=== PATIENT | female | born 1960 | race Hispanic/Latino ===

== ENCOUNTER 2017-03-01 10:12 | Emergency (ER) | payer OTHER ==
[~2017-03-01] VITALS: Ht 160 cm; Wt 75.0 kg
[2017-03-01] MEDS ORDERED: PERCOCET 5/31 TABLET PO (14:02)
[2017-03-01 15:09] VITALS: BP 151/80
== END 2017-03-01 15:10 | disposition home or self-care (01) ==
LOC: EME 10:12
DX: S92.332A Displaced fracture of third metatarsal bone, left foot, initial encounter for closed fracture (principal); S92.342A Displaced fracture of fourth metatarsal bone, left foot, initial encounter for closed fracture; W19.XXXA Unspecified fall, initial encounter; I10 Essential (primary) hypertension